=== PATIENT | female | born 1965 | race American Indian/Alaskan Native ===

== ENCOUNTER 2018-01-22 05:58 | Emergency (ER) | payer MEDICAID ==
[2018-01-22 06:25] VITALS: BP 142/86
--- NOTE | 2018-01-22 07:16 | XRay Report ---
FINAL REPORT EXAM: XR FINGER(S) 2+V LT HISTORY: Left 5th finger pain and swelling COMPARISONS: None. FINDINGS: AP view left hand and lateral view left 5th finger Mild diffuse interphalangeal osteoarthrosis. The distal radius and ulna overlap the carpal bones. No acute fracture or periosteal reaction identified. IMPRESSION: Mild interphalangeal osteoarthrosis in the left hand. No acute fracture or periosteal reaction. Suggested left wrist Madelung deformity (chronic.)
--- NOTE | 2018-01-22 07:18 | XRay Report ---
FINAL REPORT EXAM: XR KNEE BILAT 1-2V HISTORY: pain/swelling COMPARISONS: None. FINDINGS: AP and lateral views of both knees There is moderate tricompartmental osteoarthritis in both knees without acute fracture or definite joint effusion identified. IMPRESSION: Moderate tricompartmental osteoarthritis in both knees.
--- NOTE | 2018-01-22 07:24 | Emergency Department Report ---
ED Fall HPI - General Chief Complaint: Fall Stated Complaint: FALL Source: patient Mode of arrival: Ambulatory - History of Present Illness Initial Comments: Ms. Quiñonez is a 52-year-old -[place] female who sustained a fall at ground level fall at home just prior to arrival. While walking on a slick wood floor in nongroup sock. She lost her balance, falling forward, landing onto her right and left knee hitting her left hand. Since that time she has continued to have a dull throbbing pain, tubal already severely arthritic knees , which require a knee replacement and her left hand which has continued to have a dull throb" in his sensation. Pain is worse with ambulation and range of motion. She reports no loss of strength, but there is some discomfort. No loss of consciousness. No nausea, vomiting, fever, chills, sweats, chest pain, palpitations. MD Complaint: fall Place Fall Occurred: home Loss of Consciousness: none Prolonged Down Time?: no Symptoms Prior to Fall: none Severity: severe (she is currently a chronic pain patient on Roxicodone, oxycodone, morphine) Quality: dull Context: tripped/slipped Associated Symptoms: denies - Related Data Previous Rx's Medication Instructions Recorded Last Taken Type Methocarbamol [Robaxin] 750 mg PO Q8H PRN #21 tablet 01/22/18 Unknown Rx predniSONE [Deltasone] 50 mg PO QDAY #5 tab 01/22/18 Unknown Rx Allergies Allergy/AdvReac Type Severity Reaction Status Date / Time hazelnut Allergy Hives Verified 01/22/18 06:14 wheat Allergy Hives Verified 01/22/18 06:14 birsch Allergy Itching Uncoded 01/22/18 06:14 ED Review of Systems ROS: Stated complaint: FALL Other details as noted in HPI Constitutional: denies: chills, fever Eyes: denies: eye pain, eye discharge, vision change ENT: denies: ear pain, throat pain Respiratory: denies: cough, shortness of breath, wheezing Cardiovascular: denies: chest pain, palpitations Endocrine: no symptoms reported Gastrointestinal: denies: abdominal pain, nausea, diarrhea Genitourinary: denies: urgency, dysuria, discharge Musculoskeletal: arthralgia, myalgia. denies: back pain, joint swelling Skin: denies: rash, lesions Neurological: denies: headache, weakness, paresthesias Psychiatric: denies: anxiety, depression Hematological/Lymphatic: denies: easy bleeding, easy bruising ED Past Medical Hx - Past Medical History Previous Medical History?: Yes Hx Diabetes: Yes Hx Psychiatric Treatment: Yes (depression) Hx Asthma: Yes Additional medical history: sciatica - Surgical History Past Surgical History?: Yes Additional Surgical History: right great toe amputated - Social History Smoking Status: Never Smoker - Medications Home Medications: Home Medications Medication Instructions Recorded Confirmed Last Taken Type Methocarbamol [Robaxin] 750 mg PO Q8H PRN #21 tablet 01/22/18 Unknown Rx predniSONE [Deltasone] 50 mg PO QDAY #5 tab 01/22/18 Unknown Rx ED Physical Exam - General Limitations: No Limitations General appearance: alert, in no apparent distress - Head Head exam: Present: atraumatic, normocephalic - Eye Eye exam: Present: normal appearance, PERRL, EOMI. Absent: conjunctival injection, nystagmus, periorbital tenderness - ENT ENT exam: Present: normal exam, mucous membranes moist - Neck Neck exam: Present: normal inspection, full ROM. Absent: lymphadenopathy, thyromegaly - Respiratory Respiratory exam: Present: normal lung sounds bilaterally. Absent: respiratory distress, rhonchi, stridor, accessory muscle use, decreased breath sounds, prolonged expiratory - Cardiovascular Cardiovascular Exam: Present: regular rate, normal rhythm. Absent: systolic murmur, diastolic murmur, rubs, gallop - GI/Abdominal GI/Abdominal exam: Present: soft, normal bowel sounds - Extremities Exam Extremities exam: Present: normal inspection, tenderness, joint swelling, other (bilateral crepitus to knees. Normal varus and valgus. Drawer test is normal. No popliteal masses. No abrasions. Full range of motion. There is discomfort with palpation around the area of the patella. Left hand. Pulses are 2+. Capillary refills are brisk. Extremities are cool. There is some tenderness to the left fifth digit). Absent: normal capillary refill, pedal edema, calf tenderness - Back Exam Back exam: Present: normal inspection. Absent: CVA tenderness (R), CVA tenderness (L), paraspinal tenderness, vertebral tenderness - Neurological Exam Neurological exam: Present: alert, oriented X3, CN II-XII intact - Psychiatric Psychiatric exam: Present: normal affect, normal mood - Skin Skin exam: Present: warm, dry, intact, normal color. Absent: rash ED Course Vital Signs 01/22/18 06:14 Temperature 98.7 F Pulse Rate 94 H Respiratory 18 Rate Blood Pressure 142/86 O2 Sat by Pulse 100 Oximetry Critical care attestation.: If time is entered above; I have spent that time in minutes in the direct care of this critically ill patient, excluding procedure time. ED Disposition Clinical Impression: Fall from ground level, Contusion, knee, Hand contusion, Finger strain Disposition: DC- TO HOME OR SELFCARE Is pt being admited?: No Does the pt Need Aspirin: No Condition: Stable Instructions: Muscle Strain (ED), Fall Prevention for Older Adults (ED), Contusion in Adults (ED), Fall Prevention (ED) Prescriptions: Methocarbamol [Robaxin] 750 mg PO Q8H PRN #21 tablet PRN Reason: Spasms predniSONE [Deltasone] 50 mg PO QDAY #5 tab Referrals: PRIMARY CARE, [Primary Care Provider] - 3-5 Days
[2018-01-22] MEDS ORDERED: DELTASONE PO STA (07:41)
[2018-01-22] MEDS ORDERED: NORCO 5/325 PO STA (07:41)
[2018-01-22] MEDS ORDERED: SUBLIMAZE IM STA (08:00)
== END 2018-01-22 08:23 | disposition home or self-care (01) ==
LOC: EDSEX → ED 05:58
DX: S66.517A Strain of intrinsic muscle, fascia and tendon of left little finger at wrist and hand level, initial encounter (principal); S80.02XA Contusion of left knee, initial encounter; S80.01XA Contusion of right knee, initial encounter; E11.9 Type 2 diabetes mellitus without complications; F32.9 Major depressive disorder, single episode, unspecified; J45.909 Unspecified asthma, uncomplicated; Z91.018 Allergy to other foods; Z91.09 Other allergy status, other than to drugs and biological substances; W01.0XXA Fall on same level from slipping, tripping and stumbling without subsequent striking against object, initial encounter; Y93.89 Activity, other specified; Y92.009 Unspecified place in unspecified non-institutional (private) residence as the place of occurrence of the external cause; Y99.8 Other external cause status
CPT/HCPCS: 29130; 73140; 73560; 96372; 99283; J3010; J7512

== ENCOUNTER 2020-11-08 12:48 | Inpatient (IN) | payer MEDICARE ==
[2020-11-08] MEDS ORDERED: LACTATED RINGERS 1,000 ML IV ONE (13:03)
--- NOTE | 2020-11-08 13:14 | Emergency Department Report ---
HPI - General Chief Complaint: Altered Mental Status Time Seen by Provider: 11/08/20 12:56 - HPI HPI: 55-year-old female with past medical history of DM 2 and COPD is brought in by EMS due to altered mental status/unresponsiveness. According to the EMS report, the patient's had last seen her in her normal state of health/mental state last night. He said that this morning she became very confused and was unconscious. When he tried to measure her blood sugar it read high. When EMS arrived, the patient was extremely somnolent and minimally responsive but with blood pressure of 98/60, tachycardia. Her temp was 97.8. She was given 1.5 L o f IV fluids and became more responsive. According to the EMS report, when fire rescue first arrived they measured a blood pressure of 50/20 but this was using the wrong size cuff. The patient is with altered mental status and is unable to participate very much with the interview although she denies any pain, shortness of breath, cough, or fever when asked. Further details of the HPI are limited due to the patient's current clinical condition. ED Past Medical Hx - Past Medical History Hx Diabetes: Yes Hx Psychiatric Treatment: Yes (depression) Hx COPD: Yes Additional medical history: sciatica - Surgical History Additional Surgical History: right great toe amputated - Social History Smoking Status: Never Smoker - Medications Home Medications: Home Medications Medication Instructions Recorded Confirmed Last Taken Type methOCARBAMOL [Robaxin] 750 mg PO Q8H PRN #21 tablet 01/22/18 Unknown Rx predniSONE [Deltasone] 50 mg PO QDAY #5 tab 01/22/18 Unknown Rx ED Review of Systems ROS: Stated complaint: HIGH BLOOD SUGAR Other details as noted in HPI Comment: Unobtainable due to pts medical conditions Physical Exam - Physical Exam Physical Exam: GENERAL: Morbidly obese female who is extremely somnolent and arousable only to extremely loud voice or sternal rub. HEAD: Normocephalic. No obvious signs of trauma. ENT: Extremely dry mucous membranes. Otherwise within normal limits. EYES: Extraocular movements are intact. Pupils are equal round and reactive to light bilaterally NECK: Supple. Full ROM is intact. Trachea is midline. LUNGS: Tachypneic but without respiratory distress. Equal chest rise bilaterally. Globally decreased air movement throughout without discrete wheezes, rhonchi, or rales. CARDIOVASCULAR: Tachycardic but with regular rhythm. No murmurs or rubs. VASCULAR: Cap refill < 2 seconds ABDOMEN: Abdomen is soft and nondistended. There is no tenderness, guarding, or rebound. SKIN: Skin is warm and dry NEURO: Patient is extremely somnolent but arouses to very loud voice or sternal rub. She drifts off while speaking but is able to follow certain commands demonstrating automatic lathe setter II-XII grossly intact. No focal deficits. Normal motor and sensory exam throughout. Normal speech. MUSCULOSKELETAL: No obvious deformities. No significant tenderness. Normal ROM throughout. BACK/SPINE: No midline tenderness or step-offs of the C/T/L spine. No costovertebral angle tenderness. ED Medical Decision Making - Lab Data Result diagrams: 11/08/20 14:16 11/08/20 14:16 Labs 11/08/20 11/08/20 11/08/20 12:56 14:05 14:05 WBC RBC Hgb Hct MCV MCH MCHC RDW Plt Count Lymph % (Auto) Gates % (Auto) Eos % (Auto) Baso % (Auto) Lymph # (Auto) Gates # (Auto) Eos # (Auto) Baso # (Auto) Seg Neutrophils % Seg Neutrophils # PT INR APTT D-Dimer VBG pH Sodium Potassium Chloride Carbon Dioxide Anion Gap BUN Creatinine Estimated GFR BUN/Creatinine Ratio Glucose POC Glucose 443 H Osmolality Calcium Phosphorus Magnesium Ferritin Total Bilirubin Direct Bilirubin Indirect Bilirubin AST ALT Alkaline Phosphatase Ammonia Lactate Dehydrogenase Troponin T C-Reactive Protein NT-Pro-B Natriuret Pep Total Protein Albumin Albumin/Globulin Ratio Triglycerides Cholesterol LDL Cholesterol Direct HDL Cholesterol Cholesterol/HDL Ratio Lipase TSH HCG, Qual Urine Color Yellow Urine Turbidity Hazy Urine pH 5.0 Ur Specific [place] 1.020 Urine Protein <15 mg/dl Urine Glucose (UA) >=500 Urine Ketones Neg Urine Blood Neg Urine Nitrite Neg Urine Bilirubin Neg Urine Urobilinogen < 2.0 Ur Leukocyte Esterase Tr Urine WBC (Auto) < 1.0 Urine RBC (Auto) 4.0 U Epithel Cells (Auto) 13.0 Hyaline Casts 3 Urine Mucus Few Salicylates Urine Opiates Screen Presumptive positive Urine Methadone Screen Negative Acetaminophen Ur Barbiturates Screen Negative Ur Phencyclidine Scrn Negative Ur Amphetamines Screen Negative U Benzodiazepines Scrn Negative Urine Cocaine Screen Negative U Marijuana (THC) Screen Negative Drugs of Abuse Note Disclamer 11/08/20 11/08/20 11/08/20 14:16 14:16 14:16 WBC 11.5 H RBC 6.10 H Hgb 13.1 Hct 42.1 MCV 69 L MCH 22 L MCHC 31 RDW 19.2 H Plt Count 291 Lymph % (Auto) 19.9 Gates % (Auto) 8.2 H Eos % (Auto) 0.5 Baso % (Auto) 0.4 Lymph # (Auto) 2.3 Gates # (Auto) 1.0 H Eos # (Auto) 0.1 Baso # (Auto) 0.0 Seg Neutrophils % 71.0 H Seg Neutrophils # 8.2 H PT 14.9 INR 1.12 APTT 29.5 D-Dimer 296.78 H VBG pH Sodium 133 L Potassium 3.3 L Chloride 86.9 L Carbon Dioxide 36 H Anion Gap 13 BUN 22 H Creatinine 1.6 H Estimated GFR 40 BUN/Creatinine Ratio 14 Glucose 373 H POC Glucose Osmolality Calcium 8.9 Phosphorus Magnesium 2.00 Ferritin Total Bilirubin 0.30 Direct Bilirubin < 0.2 Indirect Bilirubin 0.1 AST 17 ALT < 5 L Alkaline Phosphatase 106 Ammonia Lactate Dehydrogenase Troponin T 0.040 H C-Reactive Protein NT-Pro-B Natriuret Pep 196.7 Total Protein 6.9 Albumin 3.1 L Albumin/Globulin Ratio 0.8 Triglycerides 231 H Cholesterol 163 LDL Cholesterol Direct 96 HDL Cholesterol 27 L Cholesterol/HDL Ratio 6.03 Lipase 12 L TSH HCG, Qual Urine Color Urine Turbidity Urine pH Ur Specific [place] Urine Protein Urine Glucose (UA) Urine Ketones Urine Blood Urine Nitrite Urine Bilirubin Urine Urobilinogen Ur Leukocyte Esterase Urine WBC (Auto) Urine RBC (Auto) U Epithel Cells (Auto) Hyaline Casts Urine Mucus Salicylates Urine Opiates Screen Urine Methadone Screen Acetaminophen Ur Barbiturates Screen Ur Phencyclidine Scrn Ur Amphetamines Screen U Benzodiazepines Scrn Urine Cocaine Screen U Marijuana (THC) Screen Drugs of Abuse Note 11/08/20 11/08/20 11/08/20 14:16 14:16 14:16 WBC RBC Hgb Hct MCV MCH MCHC RDW Plt Count Lymph % (Auto) Gates % (Auto) Eos % (Auto) Baso % (Auto) Lymph # (Auto) Gates # (Auto) Eos # (Auto) Baso # (Auto) Seg Neutrophils % Seg Neutrophils # PT INR APTT D-Dimer VBG pH Sodium Potassium Chloride Carbon Dioxide Anion Gap BUN Creatinine Estimated GFR BUN/Creatinine Ratio Glucose POC Glucose Osmolality Calcium Phosphorus Magnesium Ferritin Total Bilirubin Direct Bilirubin Indirect Bilirubin AST ALT Alkaline Phosphatase Ammonia 28.0 Lactate Dehydrogenase Troponin T C-Reactive Protein NT-Pro-B Natriuret Pep Total Protein Albumin Albumin/Globulin Ratio Triglycerides Cholesterol LDL Cholesterol Direct HDL Cholesterol Cholesterol/HDL Ratio Lipase TSH 0.157 L HCG, Qual Urine Color Urine Turbidity Urine pH Ur Specific [place] Urine Protein Urine Glucose (UA) Urine Ketones Urine Blood Urine Nitrite Urine Bilirubin Urine Urobilinogen Ur Leukocyte Esterase Urine WBC (Auto) Urine RBC (Auto) U Epithel Cells (Auto) Hyaline Casts Urine Mucus Salicylates < 0.3 L Urine Opiates Screen Urine Methadone Screen Acetaminophen Ur Barbiturates Screen Ur Phencyclidine Scrn Ur Amphetamines Screen U Benzodiazepines Scrn Urine Cocaine Screen U Marijuana (THC) Screen Drugs of Abuse Note 11/08/20 11/08/20 11/08/20 14:16 14:16 14:16 WBC RBC Hgb Hct MCV MCH MCHC RDW Plt Count Lymph % (Auto) Gates % (Auto) Eos % (Auto) Baso % (Auto) Lymph # (Auto) Gates # (Auto) Eos # (Auto) Baso # (Auto) Seg Neutrophils % Seg Neutrophils # PT INR APTT D-Dimer VBG pH Sodium Potassium Chloride Carbon Dioxide Anion Gap BUN Creatinine Estimated GFR BUN/Creatinine Ratio Glucose POC Glucose Osmolality 302 Calcium Phosphorus Magnesium Ferritin Total Bilirubin Direct Bilirubin Indirect Bilirubin AST ALT Alkaline Phosphatase Ammonia Lactate Dehydrogenase Troponin T C-Reactive Protein NT-Pro-B Natriuret Pep Total Protein Albumin Albumin/Globulin Ratio Triglycerides Cholesterol LDL Cholesterol Direct HDL Cholesterol Cholesterol/HDL Ratio Lipase TSH HCG, Qual Negative Urine Color Urine Turbidity Urine pH Ur Specific [place] Urine Protein Urine Glucose (UA) Urine Ketones Urine Blood Urine Nitrite Urine Bilirubin Urine Urobilinogen Ur Leukocyte Esterase Urine WBC (Auto) Urine RBC (Auto) U Epithel Cells (Auto) Hyaline Casts Urine Mucus Salicylates Urine Opiates Screen Urine Methadone Screen Acetaminophen 5.0 L Ur Barbiturates Screen Ur Phencyclidine Scrn Ur Amphetamines Screen U Benzodiazepines Scrn Urine Cocaine Screen U Marijuana (THC) Screen Drugs of Abuse Note 11/08/20 11/08/20 11/08/20 14:16 14:16 14:16 WBC RBC Hgb Hct MCV MCH MCHC RDW Plt Count Lymph % (Auto) Gates % (Auto) Eos % (Auto) Baso % (Auto) Lymph # (Auto) Gates # (Auto) Eos # (Auto) Baso # (Auto) Seg Neutrophils % Seg Neutrophils # PT INR APTT D-Dimer VBG pH 7.363 Sodium Potassium Chloride Carbon Dioxide Anion Gap BUN Creatinine Estimated GFR BUN/Creatinine Ratio Glucose POC Glucose Osmolality Calcium Phosphorus 4.00 Magnesium Ferritin 197.5 Total Bilirubin Direct Bilirubin Indirect Bilirubin AST ALT Alkaline Phosphatase Ammonia Lactate Dehydrogenase Troponin T C-Reactive Protein NT-Pro-B Natriuret Pep Total Protein Albumin Albumin/Globulin Ratio Triglycerides Cholesterol LDL Cholesterol Direct HDL Cholesterol Cholesterol/HDL Ratio Lipase TSH HCG, Qual Urine Color Urine Turbidity Urine pH Ur Specific [place] Urine Protein Urine Glucose (UA) Urine Ketones Urine Blood Urine Nitrite Urine Bilirubin Urine Urobilinogen Ur Leukocyte Esterase Urine WBC (Auto) Urine RBC (Auto) U Epithel Cells (Auto) Hyaline Casts Urine Mucus Salicylates Urine Opiates Screen Urine Methadone Screen Acetaminophen Ur Barbiturates Screen Ur Phencyclidine Scrn Ur Amphetamines Screen U Benzodiazepines Scrn Urine Cocaine Screen U Marijuana (THC) Screen Drugs of Abuse Note 11/08/20 14:16 WBC RBC Hgb Hct MCV MCH MCHC RDW Plt Count Lymph % (Auto) Gates % (Auto) Eos % (Auto) Baso % (Auto) Lymph # (Auto) Gates # (Auto) Eos # (Auto) Baso # (Auto) Seg Neutrophils % Seg Neutrophils # PT INR APTT D-Dimer VBG pH Sodium Potassium Chloride Carbon Dioxide Anion Gap BUN Creatinine Estimated GFR BUN/Creatinine Ratio Glucose 374 H POC Glucose Osmolality Calcium Phosphorus Magnesium Ferritin Total Bilirubin Direct Bilirubin Indirect Bilirubin AST ALT Alkaline Phosphatase Ammonia Lactate Dehydrogenase 227 H Troponin T C-Reactive Protein 9.30 H NT-Pro-B Natriuret Pep Total Protein Albumin Albumin/Globulin Ratio Triglycerides Cholesterol LDL Cholesterol Direct HDL Cholesterol Cholesterol/HDL Ratio Lipase TSH HCG, Qual Urine Color Urine Turbidity Urine pH Ur Specific [place] Urine Protein Urine Glucose (UA) Urine Ketones Urine Blood Urine Nitrite Urine Bilirubin Urine Urobilinogen Ur Leukocyte Esterase Urine WBC (Auto) Urine RBC (Auto) U Epithel Cells (Auto) Hyaline Casts Urine Mucus Salicylates Urine Opiates Screen Urine Methadone Screen Acetaminophen Ur Barbiturates Screen Ur Phencyclidine Scrn Ur Amphetamines Screen U Benzodiazepines Scrn Urine Cocaine Screen U Marijuana (THC) Screen Drugs of Abuse Note - EKG Data -: EKG Interpreted by Ne - EKG Data 11/08/20 17:57 Sinus tachycardia. Normal axis. Grossly normal intervals. No ectopy. There are no significant ST segment or T wave abnormalities. - Radiology Data CT HEAD WITHOUT CONTRAST INDICATION / CLINICAL INFORMATION: Altered mental status. TECHNIQUE: Axial imaging performed from the skull apex through the skull base without the use of contrast. Sagittal and coronal reformatted images. All CT scans at this location are performed using CT dose reduction for ALARA by means of automated exposure control. COMPARISON: None available. FINDINGS: CEREBRAL PARENCHYMA: No significant abnormality. No acute territorial infarct. HEMORRHAGE: None. EXTRA-AXIAL SPACES: Normal in size and morphology for the patient's age. VENTRICULAR SYSTEM: Normal in size and morphology for the patient's age. MIDLINE SHIFT OR HERNIATION: None. CEREBELLUM / BRAINSTEM: No significant abnormality. CALVARIUM: No significant abnormality. ORBITS: Normal as visualized. PARANASAL SINUSES / MASTOID AIR CELLS: Normal as visualized. SOFT TISSUES of HEAD: No significant abnormality. ADDITIONAL FINDINGS: None. IM PRESSION: No acute intracranial abnormality. Signer Name: Peng Betancur Jr, MD Signed: 11/08/2020 1:02 PM Workstation Name: [id number] CHEST 1 VIEW INDICATION: ams. COMPARISON: None FINDINGS: Support devices: None. Heart: Within normal limits. Lungs/Pleura: Subtle peribronchial infiltration is suggested in the left lung. The right lung is clear. No pleural effusion or pneumothorax. Additional findings: None. IMPRESSION: Subtle infiltration in the left lung is suspected. Correlate for early pneumonia. Signer Name: Peng Betancur Jr, MD Signed: 11/08/2020 1:35 PM Workstation Name: [id number] CTA CHEST WITH IV CONTRAST INDICATION: evaluate for PE, positive D-dimer 100 ML OMNI 300 . TECHNIQUE: Axial CT images were obtained through the chest after injection of 100 cc Omnipaque 300 IV contrast. 3 plane MIP reconstructions were produced. All CT scans at this location are performed using CT dose reduction for ALARA by means of automated exposure control. COMPARISON: Chest x-ray done earlier today FINDINGS: Pulmonary Arteries: No pulmonary emboli. Lungs: There are patchy peripheral areas of groundglass opacity in both lungs. Trachea and Bronchi: No significant abnormality. Heart and Pericardium: No significant abnormality. Vasculature: No significant abnormality. Lymphatics: No lymphadenopathy. Additional Findings: None. Upper Abdomen: No acute findings. Skeletal Structures: No acute findings or aggressive bone lesions. IMPRESSION: 1. No CT evidence for pulmonary embolism. 2. Patchy peripheral areas of groundglass opacity in both lungs. Findings can be seen in the setting of viral pneumonia. Signer Name: Herrera Bergeron MD Signed: 11/08/2020 4:57 PM Workstation Name: [id number] - Medical Decision Making 55-year-old female with past medical history of DM 2 and COPD is brought in by EMS due to altered mental status/unresponsiveness. According to the EMS report, the patient's had last seen her in her normal state of health/mental state last night. He said that this morning she became very confused and was unconscious. When he tried to measure her blood sugar it read high. When EMS arrived, the patient was extremely somnolent and minimally responsive but with blood pressure of 98/60, tachycardia. Her temp was 97.8. She was given 1.5 L of IV fluids and became more responsive. Upon arrival [facility], the patient was extremely somnolent and partially arousable to loud voice but very confused and unable to relay a consistent story and has no memory of what happened today. She is afebrile and with slight tachycardia with heart rate in the 100s. Her blood pressures in the high 90s over 50s. She is satting in the mid 90s on room air. Physical examination reveals extremely dry mucous membranes. Lung auscultation reveals decreased air movement throughout without wheezes, rhonchi, or rales. She has no abdominal tenderness and no CVA tenderness. Although she is unable to communicate effectively she does follow commands and has a nonfocal neurologic exam. Her neck is supple and with full range of motion. Initial fingerstick blood glucose reveals blood sugar in the 500s. I have ordered an additional 1 L of LR, duo nebs, and 125 mg of IV Solu- Medrol. We will perform broad work-up with a full set of labs including toxicology labs, cultures, CT of the head to evaluate for evidence of intracranial hemorrhage versus other intracranial abnormality given the patient's altered mental status., chest x-ray. We attempted to contact the patient's listed family contact but were unable to get a hold of them. At 1:30 PM, when I reassessed the patient she is now much more alert and answering most questions appropriately. However, she looked at me at 1 point and asked "do I have meningitis?" When I asked why she would ask this question, she was unable to give an answer. When I asked if she was diagnosed with meningitis she said yes. I asked whether she was recently hospitalized and she said yes. I again reassessed her neck and she has no meningismus. She is afebrile. Nonetheless, given that she does have altered mental status will attempt to contact the patient's for collateral information. At approximately 1:45 PM, I spoke to the patient's , Grover over the phone. He states that the patient had slept heavily overnight and when he woke up around 11 AM this morning he noticed she was unresponsive and called 911. He says she was in her normal state of health yesterday. When I asked about if the patient has recently been hospitalized or diagnosed with meningitis he stated no, the patient was never diagnosed with meningitis and has not been in the hospital recently, although she did suffer from diarrhea a few weeks ago. She is apparently being worked up for some kind of blood issue. With this further information, we will proceed with current work-up At 2:05 PM, the patient remains with stable vitals with the exception of oxygen saturation 89 to 90% on room air. This improved to the high 90s on 2 L via nasal cannula. Breathing treatments are ordered. COVID-19 order set was initiated[address] of the head reveals no acute abnormalities. Chest x-ray at 2:58 PM reveals subtle left-sided infiltrates concerning for early pneumonia. I have ordered broad-spectrum cefepime and azithromycin for community-acquired pneumonia. Labs have partially resulted at 3:18 PM and reveal very mild leukocytosis of 11.5 with no evidence of anemia. Patient's D-dimer is elevated at 296. The chemistry panel is still pending. UDS has returned positive for opiates. For this reason I have ordered 2 mg of IV Narcan in case any of her mental status disturbance is related to opiate intoxication. The patient did not seem to respond to Narcan and remains somnolent but without any focal neurologic deficits. At this point, the patient's blood pressure dipped into the 70s systolic but she continued to appear extremely dry and once an additional liter was ordered and pressure back, her blood pressure improved to normal values. Additional 1 L of IV fluids has been ordered Chemistry reveals elevated creatinine of 1.6 and BUN of 22 from unknown baseline. Her sodium is 133 and potassium is low at 3.3. Troponin is mildly elevated at 0.04 but given her severely contracted volume status I suspect that this is a type II troponin leak secondary to severe volume depletion. Will order 40 mEq of potassium and 5 units of insulin to be given only after the potassium. At 4 PM I spoke with Dr. Trejo, the on-call hospitalist regarding the case. He accepts patient for admission and will assume care. Critical Care Time: Yes Critical care time in (mins) excluding proc time.: 80 Critical care attestation.: If time is entered above; I have spent that time in minutes in the direct care of this critically ill patient, excluding procedure time. Critical care time was spent in the evaluation, assessment, work-up, and management of altered mental status with hyperglycemia, COPD exacerbation with hypoxia, severe dehydration, hypokalemia, and pneumonia requiring IV fluids, breathing treatments, steroids, IV antibiotics, supplemental oxygen, and IV insulin as well as multiple reevaluations and reassessments. ED Disposition Clinical Impression: Altered mental status, Dehydration, Hypoxia, Pneumonia, Suspected COVID-19 viru s infection, COPD exacerbation, Hyperglycemia, Hypokalemia, Acute kidney injury, Elevated troponin, Acute hypoxemic respiratory failure Disposition: OP ADMIT IP TO THIS HOSP Is pt being admited?: Yes Condition: Stable
[2020-11-08] MEDS ORDERED: IPRATROPIUM/ALBUTEROL SULFATE 3 ML AMPUL.NEB IH ONE (14:05)
[2020-11-08] MEDS ORDERED: methylPREDNISolone Sod Succinate 125 MG/2 ML INJ IV ONE (14:06)
--- NOTE | 2020-11-08 14:06 | Cat Scan Report ---
CT HEAD WITHOUT CONTRAST INDICATION / CLINICAL INFORMATION: Altered mental status. TECHNIQUE: Axial imaging performed from the skull apex through the skull base without the use of cont rast. Sagittal and coronal reformatted images. All CT scans at this location are performed using CT dose reduction for ALARA by means of automated exposure control. COMPARISON: None available. FINDINGS: CEREBRAL PARENCHYMA: No significant abnormality. No acute territorial infarct. HEMORRHAGE: None. EXTRA-AXIAL SPACES: Normal in size and morphology for the patient's age. VENTRICULAR SYSTEM: Normal in size and morphology for the patient's age. MIDLINE SHIFT OR HERNIATION: None. CEREBELLUM / BRAINSTEM: No significant abnormality. CALVARIUM: No significant abnormality. ORBITS: Normal as visualized. PARANASAL SINUSES / MASTOID AIR CELLS: Normal as visualized. SOFT TISSUES of HEAD: No significant abnormality. ADDITIONAL FINDINGS: None. IMPRESSION: No acute intracranial abnormality. Signer Name: Peng Betancur Jr, MD Signed: 11/08/2020 2:02 PM Workstation Name: [id number]
[2020-11-08 14:20] LABS: Bilirubin,Urine NEG (Negative); Blood,Urine NEG (Negative); Color,Urine Yellow (Yellow); Hyaline Casts,Urine 3 /LPF; Mucus,Urine FEW /HPF; Protein,Urine <15 mg/dL mg/dL (Negative); Urobilinogen,Urine < 2.0 mg/dL (<2.0)
[2020-11-08 14:23] LABS: Amphetamine Screen,Urine Negative; Benzodiazepines Screen,Urine Negative; Cannabinoid Screen,Urine Negative; Cocaine Screen,Urine Negative; Methadone Screen,Urine Negative
--- NOTE | 2020-11-08 14:39 | XRay Report ---
CHEST 1 VIEW INDICATION: ams. COMPARISON: None FINDINGS: Support devices: None. Heart: Within normal limits. Lungs/Pleura: Subtle peribronchial infiltration is suggested in the left lung. The right lung is raven r. No pleural effusion or pneumothorax. Additional findings: None. IMPRESSION: Subtle infiltration in the left lung is suspected. Correlate for early pneumonia. Signer Name: Peng Betancur Jr, MD Signed: 11/08/2020 2:35 PM Workstation Name: [id number]
[2020-11-08 14:45] LABS: Basophils % (Auto) 0.4 % (0.0-1.8); Eosinophils # (Auto) 0.1 K/mm3 (0.0-0.4); Eosinophils % (Auto) 0.5 % (0.0-4.3); Hematocrit 42.1 % (30.3-42.9); Hemoglobin 13.1 gm/dl (10.1-14.3); Lymphocytes # (Auto) 2.3 K/mm3 (1.2-5.4); Lymphocytes % (Auto) 19.9 % (13.4-35.0); Mean Corpuscular HGB Conc 31 % (30-34); Monocytes % (Auto) 8.2 % (0.0-7.3); Platelet Count 291 K/mm3 (140-440); Red Cell Distribution Width 19.2 % (13.2-15.2)
[2020-11-08 14:47] LABS: Opiate Screen,Urine PRESUMPTIVE POSITIVE
[2020-11-08] MEDS ORDERED: cefTRIAXone/NS 2 GM/100 ML 2 GM/100 ML BAG IV ONE (14:59)
[2020-11-08] MEDS ORDERED: AZITHROMYCIN/NS 500 MG/250 ML 500 MG/250 ML BAG IV ONE (15:00)
[2020-11-08 15:02] LABS: INR 1.12 (0.87-1.13)
[2020-11-08 15:03] LABS: Partial Thromboplastin Time 29.5 Sec. (24.2-36.6)
[2020-11-08 15:06] LABS: Mean Corpuscular Volume 69 fl (79-97)
[2020-11-08 15:08] LABS: WBC,Urine < 1.0 /HPF (0.0-6.0)
[2020-11-08 15:17] LABS: C-Reactive Protein 9.3 mg/dL (0.00-1.30)
[2020-11-08] MEDS ORDERED: NALOXONE 2 MG/2 ML INJ ONE (15:24)
[2020-11-08] MEDS ORDERED: CEFEPIME/NS 2 GM/100 ML 2 GM/100 ML BAG IV ONE (15:25)
[2020-11-08] MEDS ORDERED: NALOXONE 2 MG/2 ML INJ IV ONE (15:25)
[2020-11-08] MEDS ORDERED: SODIUM CHLORIDE 0.9% 1000 ML 1,000 ML IV ONE ×2 (15:26→15:59)
[2020-11-08 15:52] LABS: Albumin 3.1 g/dL (3.9-5); BUN/Creatinine Ratio 14; Blood Urea Nitrogen 22 mg/dL (7-17); Calcium 8.9 mg/dL (8.4-10.2); Hemolysis Index 0
[2020-11-08 15:53] LABS: Alanine Aminotransferase < 5 units/L (7-56); Bilirubin,Direct < 0.2 mg/dL (0-0.2)
[2020-11-08] MEDS ORDERED: POTASSIUM CHLORIDE ER 20 MEQ TAB PO ONE (15:56)
[2020-11-08] MEDS ORDERED: INSULIN REGULAR, HUMAN 100 UNITS/1 ML IV ONE (15:57)
[2020-11-08] MEDS ORDERED: ALBUTEROL 2.5 MG/3 ML NEBU IH PRN (16:01)
[2020-11-08] MEDS ORDERED: oxyCODONE /ACETAMINOPHEN 5-325MG TAB PO PRN (16:01)
[2020-11-08] MEDS ORDERED: ONDANSETRON 4 MG/2 ML INJ IV PRN (16:01)
[2020-11-08] MEDS ORDERED: HYDROmorphone 1 MG/1 ML INJ IV PRN (16:01)
[2020-11-08] MEDS ORDERED: ACETAMINOPHEN 325 MG TAB PO PRN (16:01)
--- NOTE | 2020-11-08 16:01 | History and Physical Report ---
History of Present Illness Chief complaint: She got really confused History of present illness: 55 YO Female with Obesity Hypoventilation Syndrome, DM, COPD, Depression, Sciatica presents to ED for evaluation. Patient is confused with diminished cognition and is unable to provide detailed history. Patient history provided by EMS staff, ED staff, as well as the patient who was made available by telephone for interview. As per the patient was found to be confused upon awakening from sleep this morning. EMS was notified and upon arrival the patient was found to be in distress. The patient was found to be hypotensive with a blood pressure 98/60. Patient treated with IV fluid resuscitation the rapy and transported to [facility] for further care and evaluation of the aforementioned symptoms. The patient was seen and evaluated in the emergency department. All lab and imaging studies reviewed. The patient was found to have a pulse oximetry of 84% on room air which is consistent with acute hypoxic respiratory failure. Patient also found to have clinical symptoms consistent with acute bronchitis, as well as acute kidney injury. Chest x-ray revealed pneumonia. The patient was admitted to medical floor and initiated on coronavirus protocol as well as pneumonia protocol. No reports of fever, chills, chest pain, palpitation, skin rash, recent ill contacts, or known exposure to COVID-19. No prior admission for review. No medication listed at time of admission for reconciliation. Advanced care planning conducted in ED. Past History Past Medical History: COPD, diabetes, other (See HPI) Past Surgical History: No surgical history, Other (Reviewed) Social history: , lives with family. denies: smoking, alcohol abuse, prescription drug abuse Family history: diabetes, hypertension Medications and Allergies Allergies Allergy/AdvReac Type Severity Reaction Status Date / Time hazelnut Allergy Hives Verified 01/22/18 06:14 wheat Allergy Hives Verified 01/22/18 06:14 birsch Allergy Itching Uncoded 01/22/18 06:14 Home Medications Medication Instructions Recorded Confirmed Last Taken Type methOCARBAMOL [Robaxin] 750 mg PO Q8H PRN #21 tablet 01/22/18 Unknown Rx predniSONE [Deltasone] 50 mg PO QDAY #5 tab 01/22/18 Unknown Rx Active Meds: Active Medications Sodium Chloride (Nacl 0.9% 1000 Ml) 1,000 mls @ 999 mls/hr IV BOLUS ONE Stop: 11/08/20 16:26 Sodium Chloride (Nacl 0.9% 1000 Ml) 1,000 mls @ 999 mls/hr IV BOLUS ONE Stop: 11/08/20 16:59 Review of Systems ROS unobtainable: due to mental status Exam - Constitutional Vitals: Temp Pulse Resp BP Pulse Ox 98.3 F 112 H 18 98/56 97 11/08/20 13:30 11/08/20 14:25 11/08/20 14:25 11/08/20 13:30 11/08/20 14:20 General appearance: Present: mild distress, obese - EENT Eyes: Present: PERRL ENT: hearing intact, clear oral mucosa - Neck Neck: Present: supple, normal ROM - Respiratory Respiratory effort: labored, accessory muscle use, stridor Respiratory: bilateral: diminished, rhonchi - Cardiovascular Heart Sounds: Present: S1 & S2. Absent: rub, click - Extremities Extremities: pulses symmetrical, No edema Peripheral Pulses: within normal limits - Abdominal General gastrointestinal: Present: soft, non-tender, non-distended, normal bowel sounds Female genitourinary: Present: normal - Integumentary Integumentary: Present: clear, warm, dry - Musculoskeletal Musculoskeletal: gait normal, strength equal bilaterally - Psychiatric Psychiatric: no appropriate mood/affect, no intact judgment & insight, no memory intact - Neurologic Neurologic: CNII-XII intact, no focal deficits, moves all extremities, no gait normal HEART Score - HEART Score Troponin: Troponin T 0.040 ng/mL (0.00-0.029) H 11/08/20 14:16 Results - Labs CBC & Chem 7: 11/08/20 14:16 11/08/20 14:16 Labs: Abnormal lab results 11/08/20 11/08/20 11/08/20 Range/Units 12:56 14:16 14:16 WBC 11.5 H (4.5-11.0) K/mm3 RBC 6.10 H (3.65-5.03) M/mm3 MCV 69 L (79-97) fl MCH 22 L (28-32) pg RDW 19.2 H (13.2-15.2) % Phillips % (Auto) 8.2 H (0.0-7.3) % Phillips # (Auto) 1.0 H (0.0-0.8) K/mm3 Seg Neutrophils % 71.0 H (40.0-70.0) % Seg Neutrophils # 8.2 H (1.8-7.7) K/mm3 D-Dimer 296.78 H (0-234) ng/mlDDU Sodium (137-145) mmol/L Potassium (3.6-5.0) mmol/L Chloride (98-107) mmol/L Carbon Dioxide (22-30) mmol/L BUN (7-17) mg/dL Creatinine (0.6-1.2) mg/dL Glucose (65-100) mg/dL POC Glucose 443 H (70-105) mg/dL ALT (7-56) units/L Lactate Dehydrogenase (91-180) units/L Troponin T (0.00-0.029) ng/mL C-Reactive Protein (0.00-1.30) mg/dL Albumin (3.9-5) g/dL Lipase (13-60) units/L TSH (0.270-4.200) mlU/mL Salicylates (2.8-20.0) mg/dL Acetaminophen (10.0-30.0) ug/mL 11/08/20 11/08/20 11/08/20 Range/Units 14:16 14:16 14:16 WBC (4.5-11.0) K/mm3 RBC (3.65-5.03) M/mm3 MCV (79-97) fl MCH (28-32) pg RDW (13.2-15.2) % Phillips % (Auto) (0.0-7.3) % Phillips # (Auto) (0.0-0.8) K/mm3 Seg Neutrophils % (40.0-70.0) % Seg Neutrophils # (1.8-7.7) K/mm3 D-Dimer (0-234) ng/mlDDU Sodium 133 L (137-145) mmol/L Potassium 3.3 L (3.6-5.0) mmol/L Chloride 86.9 L (98-107) mmol/L Carbon Dioxide 36 H (22-30) mmol/L BUN 22 H (7-17) mg/dL Creatinine 1.6 H (0.6-1.2) mg/dL Glucose 373 H (65-100) mg/dL POC Glucose (70-105) mg/dL ALT < 5 L (7-56) units/L Lactate Dehydrogenase (91-180) units/L Troponin T 0.040 H (0.00-0.029) ng/mL C-Reactive Protein (0.00-1.30) mg/dL Albumin 3.1 L (3.9-5) g/dL Lipase 12 L (13-60) units/L TSH 0.157 L (0.270-4.200) mlU/mL Salicylates < 0.3 L (2.8-20.0) mg/dL Acetaminophen (10.0-30.0) ug/mL 11/08/20 11/08/20 Range/Units 14:16 14:16 WBC (4.5-11.0) K/mm3 RBC (3.65-5.03) M/mm3 MCV (79-97) fl MCH (28-32) pg RDW (13.2-15.2) % Phillips % (Auto) (0.0-7.3) % Phillips # (Auto) (0.0-0.8) K/mm3 Seg Neutrophils % (40.0-70.0) % Seg Neutrophils # (1.8-7.7) K/mm3 D-Dimer (0-234) ng/mlDDU Sodium (137-145) mmol/L Potassium (3.6-5.0) mmol/L Chloride (98-107) mmol/L Carbon Dioxide (22-30) mmol/L BUN (7-17) mg/dL Creatinine (0.6-1.2) mg/dL Glucose 374 H (65-100) mg/dL POC Glucose (70-105) mg/dL ALT (7-56) units/L Lactate Dehydrogenase 227 H (91-180) units/L Troponin T (0.00-0.029) ng/mL C-Reactive Protein 9.30 H (0.00-1.30) mg/dL Albumin (3.9-5) g/dL Lipase (13-60) units/L TSH (0.270-4.200) mlU/mL Salicylates (2.8-20.0) mg/dL Acetaminophen 5.0 L (10.0-30.0) ug/mL Assessment and Plan - Patient Problems (1) Acute hypoxemic respiratory failure Current Visit: Yes Status: Acute Plan to address problem: Chest x-ray, supplemental oxygen, pulse oximetry, nebulizer therapy, noninvasive positive pressure ventilation as clinically indicated. (2) Suspected 2019 novel coronavirus infection Current Visit: Yes Status: Acute Plan to address problem: Coronavirus protocol: IV antibiotic therapy, IV steroid therapy, supplemental oxygen, pulse oximetry, nebulizer therapy, proposition while in bed, vitamin C therapy vitamin D therapy, zinc therapy, prone positioning while in bed (3) Pneumonia Current Visit: Yes Status: Acute Plan to address problem: Pneumonia protocol: Chest x-ray, CBC, CMP, IV antibiotic therapy, supplemental oxygen, pulse oximetry, nebulizer therapy, blood culture. (4) Acute bronchitis Current Visit: Yes Status: Acute Plan to address problem: IV steroid therapy, supportive care, p.o. supplemental oxygen, (5) Obesity hypoventilation syndrome Current Visit: Yes Status: Acute Plan to address problem: Balanced diet, increase physical activity discharge, outpatient pulmonary follow-up for sleep study (6) DVT prophylaxis Current Visit: Yes Status: Acute Plan to address problem: SCD to bilateral lower extremities while in bed, prophylactic anticoagulation
[2020-11-08] MEDS ORDERED: DEXTROSE 50% IN WATER (25GM) 50 ML SYRINGE IV PRN (16:05)
[2020-11-08 16:09] LABS: Chol/HDL Ratio 6.03 %; HDL Cholesterol 27 mg/dL (40-59); LDL Cholesterol,Direct 96 mg/dL (50-130)
--- NOTE | 2020-11-08 18:01 | Cat Scan Report ---
CTA CHEST WITH IV CONTRAST INDICATION: evaluate for PE, positive D-dimer 100 ML OMNI 300 . TECHNIQUE: Axial CT images were obtained through the chest after injection of 100 cc Omnipaque 300 IV contrast. 3 plane MIP reconstructions were produced. All CT scans at this location are performed using CT dose reduction for ALARA by means of automated exposure control. COMPARISON: Chest x-ray done earlier today FINDINGS: Pulmonary Arteries: No pulmonary emboli. Lungs: There are patchy peripheral areas of groundglass opacity in both lungs. Trachea and Bronchi: No significant abnormality. Heart and Pericardium: No significant abnormality. Vasculature: No significant abnormality. Lymphatics: No lymphadenopathy. Additional Findings: None. Upper Abdomen: No acute findings. Skeletal Structures: No acute findings or aggressive bone lesions. IMPRESSION: 1. No CT evidence for pulmonary embolism. 2. Patchy peripheral areas of groundglass opacity in both lungs. Findings can be seen in the setting of viral pneumonia. Signer Name: Herrera Bergeron MD Signed: 11/08/2020 5:57 PM Workstation Name: [id number]
[2020-11-08] MEDS: POTASSIUM CHLORIDE 10 MEQ 10 MEQ/100 ML BAG IV SCH ×4 (18:45→22:35)
[2020-11-08] MEDS: INSULIN LISPRO 100 UNIT/ML SUB-Q SCH (19:04)
[2020-11-08] MEDS: HEPARIN 5,000 UNIT/1 ML VIAL SUB-Q SCH (22:21)
[2020-11-08] MEDS: ZINC SULFATE 220 MG CAP PO SCH (22:21)
[2020-11-08] MEDS: ASCORBIC ACID 500 MG TAB PO SCH (22:23)
[2020-11-09] MEDS: methylPREDNISolone Sod Succinate 40 MG/1 ML INJ IV SCH ×2 (00:13→11:05)
[2020-11-09] MEDS: INSULIN LISPRO 100 UNIT/ML SUB-Q SCH ×2 (00:15→06:29)
[2020-11-09 03:04] VITALS: BP 156/75
--- NOTE | 2020-11-09 04:21 | Cat Scan Report ---
CT angio head INDICATION / CLINICAL INFORMATION: 55 years Female; Pt complains of LEFT sided weakness / Altered Mental Status. TECHNIQUE: Thin cut axial images obtained through the head during IV bolus contrast administration. S agittal, coronal, and 3 plane MIP reconstructions performed by the technologist. NASCET type criteria used evaluate stenoses. Automated exposure control utilized for radiation reduction purposes. COMPARISON: None available. FINDINGS: INTERNAL CAROTID ARTERIES: There is atherosclerotic calcification involving anterior genu of the righ t ICA with mild stenosis by NASCET criteria. There is no further significant focal narrowing involvin g the internal carotid arteries. VERTEBROBASILAR SYSTEM: The vertebrobasilar system appears to demonstrate appropriate caliber without significant focal stenosis at. CEREBRAL ARTERIES: There is no significant focal stenosis involving proximal cerebral arteries or charline dence of large vessel occlusion. There is some opacification of the adjacent a veins along the region s of the MCA trifurcations. ANEURYSM: None identified. ADDITIONAL FINDINGS: Remainder of the surrounding soft tissues are grossly normal. IMPRESSION: There is atherosclerotic calcification involving the anterior genu of the right ICA with mild stenosi s. There is no clear CTA evidence of large vessel occlusion. Signer Name: Elvin Alejandre MD Signed: 11/09/2020 4:16 AM Workstation Name: [id number]
[2020-11-09] MEDS ORDERED: CHOLECALCIFEROL (VIT D3) 1000 UNIT (25 mcg) TAB PO SCH (10:00)
[2020-11-09] MEDS: HEPARIN 5,000 UNIT/1 ML VIAL SUB-Q SCH (11:05)
[2020-11-09] MEDS: ASCORBIC ACID 500 MG TAB PO SCH (11:06)
[2020-11-09] MEDS: ZINC SULFATE 220 MG CAP PO SCH (11:06)
--- NOTE | 2020-11-09 11:09 | Electrocardiograph Report ---
[facility] Test Date: 2020-11-08 Test Time: 14:07:34 Pat Name: GATO CORCORAN Department: Room: [place] [address] Gender: F English Instructor: ED NURSE : 1965 Requested By: MADELINE AHMADI Order Number: [id number] Reading MD: Miladis Baer Measurements Intervals Leon Rate: 106 P: 42 VA: 186 QRS: 22 QRSD: 81 T: 89 QT: 375 QTc: 499 Interpretive Statements Sinus tachycardia Probable left atrial enlargement Anteroseptal infarct, age indeterminate No previous ECG available for comparison Electronically Signed On 11-09-2020 11:08:45 EDT by Miladis Baer
--- NOTE | 2020-11-09 12:52 | Event Note ---
Date: 11/09/20 Patient left AMA before seen by MD refused treatment per RN and signed the AMA paper
[2020-11-09] MEDS ORDERED: cloNIDine TTS 0.1 MG/24 HR PATCH TD SCH (14:00)
[2020-11-09] MEDS ORDERED: cefTRIAXone/NS 2 GM/100 ML 2 GM/100 ML BAG IV SCH (17:00)
[2020-11-09] MEDS ORDERED: AZITHROMYCIN/NS 500 MG/250 ML 500 MG/250 ML BAG IV SCH (17:00)
== END 2020-11-09 11:15 | disposition left against medical advice (07) | DRG 193 ==
LOC: ED 12:48 → 3A 16:01
PROVIDERS: ADMIT Internal Medicine; ATTEND Internal Medicine
DX: J18.9 Pneumonia, unspecified organism (principal); J96.01 Acute respiratory failure with hypoxia; N17.9 Acute kidney failure, unspecified; E66.2 Morbid (severe) obesity with alveolar hypoventilation; J44.0 Chronic obstructive pulmonary disease with (acute) lower respiratory infection; J44.1 Chronic obstructive pulmonary disease with (acute) exacerbation; Z20.822 Contact with and (suspected) exposure to COVID-19; J20.9 Acute bronchitis, unspecified; F32.9 Major depressive disorder, single episode, unspecified; E86.0 Dehydration; E11.65 Type 2 diabetes mellitus with hyperglycemia; E87.6 Hypokalemia; R77.8 Other specified abnormalities of plasma proteins; Z68.39 Body mass index [BMI] 39.0-39.9, adult; Z82.49 Family history of ischemic heart disease and other diseases of the circulatory system; Z83.3 Family history of diabetes mellitus; Z79.899 Other long term (current) drug therapy
CPT/HCPCS: 36415; 70450; 70496; 71045; 71275; 80048; 80061; 80076; 80307; 80320; 81001; 82140; 82728; 82805; 82947; 82962; 83615; 83690; 83735; 83880; 83930; 84100; 84145; 84443; 84484; 84703; 85025; 85379; 85610; 85730; 86140; 87040; 87086; 93005; 94644; 99292; G0378; G0480; J0456; J0692; J0696; J1170; J1644; J1815; J2310; J2920; J2930; J3480; J7030; J7120; Q9967; U0003